=== PATIENT | male | born 1955 | race Caucasian/White ===

== ENCOUNTER 2025-07-06 15:22 | Emergency (ER) | payer MEDICARE, SELFPAY ==
--- NOTE | ~2025-07-06 | XR_ITS ---
EXAMINATION: XR FOOT, RIGHT CLINICAL INFORMATION: bony outgrowth of MCP COMPARISON: None available. TECHNIQUE: AP, lateral, and oblique views of the right foot. FINDINGS: There is severe degenerative changes of the first MTP joint with flattening of the distal metatarsal heads surface and irregular osteophytes with degenerative cystic change in the metatarsal head. There is mild degenerative changes in the IP joint of the great toe with marginal sites and mild narrowing. Small calcaneal spurs are evident. Otherwise, unremarkable exam. XR/XR foot RT min 3V IMPRESSION: Severe osteoarthritis the first MTP joint could be posttraumatic or post infectious. Electronically signed by: Alex Thompson MD 07/06/2025 04:29 PM EDT RP
[2025-07-06 15:28] VITALS: BP 126/81; PULSE 99; RESP 16; TEMP 36.7; O2SAT 99; BMI 21.8
--- NOTE | 2025-07-06 15:29 | ED.GENADULT ---
HPI - General Adult General Chief complaint: Extremity Problem Stated complaint: edema rt foot/lump over the big toe Time Seen by Provider: 07/06/25 17:00 Source: patient Mode of arrival: ambulatory Limitations: no limitations History of Present Illness ED Provider: Dr. Escamilla HPI narrative: 69-year-old male presented hospital today for signs of right foot swelling and bony outgrowth of the right MCP. Patient stated that this is abnormal. This swelling of the right foot has been going on for a month now. No traumatic injury. Related Data Previous Rx's ?Medication ?Instructions ?Recorded acetaminophen 500 mg tablet 1,000 mg (2 x 500 mg) PO Q8H 10 07/06/25 days #60 tabs ibuprofen 400 mg tablet 400 mg PO Q8H PRN pain #30 tabs 07/06/25 methylprednisolone 4 mg tablets in 4 mg PO DAILY #21 ea 07/06/25 a dose pack (Medrol (Deion)) Allergies Allergy/AdvReac Type Severity Reaction Status Date / Time Penicillins (PENICILLINS) Allergy Severe ANAPHYLAXIS Verified 07/06/25 15:30 penicillin V Allergy Unknown swelling Verified 07/06/25 15:30 Review of Systems Review of Systems: Pertinent review of systems as mentioned in HPI. All other system otherwise negative. FORMERLY [facility] Past Medical History [facility] Narrative: None Social History Social History Advance Directives: No Advance Directives Information Provided: No Physical Exam ED Exam Exam: General: Pleasant, no distress, interacting appropriately Head: Normacephalic, atraumatic Extremities: There is some swelling over the right MCP bony outgrowth appearing. No sign of erythema or cellulitis Neurological: Awake and alert, no facial droop noted Skin: Warm and dry Psychiatric: Appropriate mood and thoughts Vital Signs: Vital Signs - 24 hr 07/06/25 15:28 07/06/25 17:15 Temperature 98.1 F 98.1 F Pulse Rate 99 99 Respiratory Rate 16 16 Blood Pressure 126/81 126/81 Pulse Oximetry 99 99 Oxygen Delivery Method Room Air Room Air BMI result Body Mass Index 21.8 Course Course Course Narrative: Rapid medical screening exam was performed. Patient stable at time of evaluation. 69-year-old male history of hypertension , hyperlipidemia presented hospital today for right foot edema for 1 month Flores Escamilla DO 07/06/25 1530 Medications Administered Discontinued Medications Generic Name Dose Route Start Last Admin Trade Name Freq PRN Reason Stop Dose Admin Acetaminophen 975 mg 07/06/25 17:06 07/06/25 17:12 Acetaminophen 325 Mg Tablet PO 07/06/25 17:07 975 mg ONCE ONE Administration Ibuprofen 400 mg 07/06/25 17:06 07/06/25 17:12 Ibuprofen 400 Mg Tablet PO 07/06/25 17:07 400 mg ONCE ONE Administration Prednisone 40 mg 07/06/25 17:06 07/06/25 17:12 Prednisone 20 Mg Tablet PO 07/06/25 17:07 40 mg ONCE ONE Administration Medical Decision Making Medical Decision Making [facility] Narrative: 69-year-old male presented hospital today for evaluation of swollen of the right MCP Appears to be a bony outgrowth of the right MCP. We will obtain an x-ray. X-ray shows signs of severe osteoarthritis. We will plan to discharge patient with follow up with podiatry clinic. Prednisone ibuprofen Tylenol will be prescribed to the patient. I have low suspicion for any signs of infection. Patient will be discharged. Differential Diagnosis Differential Diagnoses: The differential diagnosis associated with the presentation includes Gout, osteoarthritis, bony outgrowth, cancer Independent Interpretation I performed an independent interpretation of an: Plain X-Ray Radiology Impression Discussion of test interpretation with radiology: I have reviewed the radiologist's reading. Discharge Plan Discharge Clinical Impression: Osteoarthritis Qualifiers: Osteoarthritis location: foot Osteoarthritis type: unspecified Laterality: left Qualified Code(s): M19.072 - Primary osteoarthritis, left ankle and foot Patient Disposition: Home, Self-Care Instructions: Osteoarthritis (ED) Prescriptions: New methylprednisolone [Medrol (Deion)] 4 mg tablets,dose pack 4 mg PO DAILY Qty: 21 0RF acetaminophen 500 mg tablet 1,000 mg PO Q8H 10 Days Qty: 60 0RF ibuprofen 400 mg tablet 400 mg PO Q8H PRN (Reason: pain) Qty: 30 0RF Referrals: [facility] Podiatry [Provider Group, Podiatry] Interventions: ED Discharge Assessment Last Done: 07/06/25 17:15 Discharge Date/Time: 07/06/25 17:15 Print Language: Yi
[2025-07-06 17:15] VITALS: BP 126/81; PULSE 99; RESP 16; TEMP 36.7; O2SAT 99
--- OUTSIDE RECORDS SUMMARY | 2025-07-06 20:14 | XMS_ITS ---
Author Name RUSTP Organization Unknown Care Team Organization Name Specialty Phone Email Start Date End Da te [facility] Primary [facility] 07/16/2022 4
--- OUTSIDE RECORDS SUMMARY | 2025-07-06 20:15 | XMS_ITS | Clinical Summary ---
Author Organization [facility] [address] [place] [address] [place] [address] SUSHMA Boateng [phone] Phone Care Team Providers Care Senior Publications Specialist Name Role Phone Agapito Reynaga MD Primary Care Provider [phone] Allergies Active Allergy Reactions Criticality Noted Date Comments Penicillins Swelling 10/10/2007 Medications carvediloL (COREG) 25 mg tablet Take 1 Tablet by mouth every 12 hours. 01/29/2024 Active FA/mv,Ca,iron,m in/lycopene/lut (MULTIVITAL ORAL) Take by mouth. Active folic acid (FOLVITE) 1 mg tablet Take 1 tablet (1,000 mcg total) by mouth 1 (one) time each day. 30 tablet 10/29/2024 Active spironolactone (ALDACTONE) 25 mg tablet TAKE 1 TABLET BY MOUTH EVERYDAY AT BEDTIME 90 tablet 1 04/06/2025 Active atorvastatin (LIPITOR) 20 mg tablet TAKE 1 TABLET BY MOUTH EVERY DAY 90 tablet 1 04/06/2025 Active lisinopriL (PRINIVIL,ZESTR IL) 5 mg tablet TAKE 1 TABLET BY MOUTH EVERYDAY AT BEDTIME 90 tablet 1 04/06/2025 Active Active Problems Problem Noted Date Diagnosed Date CKD (chronic kidney disease) stage 3, GFR 30-59 ml/min ([facility] V24, [facility] V28) 07/01/2023 Current smoker 01/08/2023 Dilated aortic root ([facility] V24) 03/10/2019 Alcohol abuse 12/17/2016 C. difficile colitis 12/17/2016 Overview (08/16/2024): February 2016 Hepatic abscess 12/17/2016 Overview (08/16/2024): February 2012 Hypertension 12/17/2016 Microhematuria 12/17/2016 Overview (08/16/2024): Dr. Garcia; 2011 Syncope 12/17/2016 Overview (08/16/2024): Dr. 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 Encounters Date Type Department Care Team Description 06/24/2025 Telephone Adult Medicine [address] [phone] Agapito Reynaga MD from Last 3 Months Immunizations Immunization Administration Dates Next Due Influenza trivalent, 0.5mL ( Fluad) 65yo and older 06/10/2024,10/22/2023,05/16/2022,09/05 Influenza trivalent, 0.5mL, preservative free (Fluarix; FluLaval; Fluzone) ages 6mo and older (Afluria) 3 years and older 07/07/2014 Influenza, Unspecified 05/24/2016 Pneumococcal conjugate 13 va lent (Prevnar 13, PCV13) 2mo and older 09/05/2021 Pneumococcal polysaccharide 23 valent (Pneumovax 23) 2yo and older 02/05/2017,08/20/2015 Pneumococcal, Unspecified 05/24/2016 Td Tetanus diptheria (Tdvax) 7yo and older 05/16/2022 Tdap Tetanus diptheria acell ular pertussis (Boostrix; Adacel) 7yo and older 02/12/2010 Zoster Live 08/20/2015 Surgical History Surgery Date Site/Laterality Comments LUMBAR LAMINECTOMY 1995 PROCEDURE: HISTORICAL LUMB LAMINECTOMY Social History Tobacco Use Types Packs/Day Years Used Date Smoking Tobacco: Former Cigarettes Q uit: 11/07/2023 Smokeless Tobacco: Never Alcohol Use Standard Drinks/Week Comments Not Asked 0 (1 standard drink = 0.6 oz pur e alcohol) Sex and Gender Information Value Date Recorded Sex Assigned at Not on file Legal Sex Male 5:35 PM EST Gender Identity Not on file Sexual Orientation Not on file Obstetrics History Last Filed Vital Signs Vital Sign Reading Time Taken Comments Blood Pressure 93/56 03/09/2024 10:11 AM EDT Pulse 87 03/09/2024 10:11 AM EDT Temperature - - Respiratory Rate - - Oxygen Saturation - - Inhaled Oxygen Concentration - - Weight 77.1 kg (170 lb) 03/09/2024 10:11 AM EDT Height 185.4 cm (6' 1 ) 03/09/2024 10:11 AM EDT Body Mass Index 22.43 03/09/2024 10:11 AM EDT Plan of Treatment Upcoming Encounters Date Type Department Care Team (Late st Contact Info) Description 12/19/2025 2:00 PM EDT Office Visit Adult Medicine [facility] [address] [place] [phone] Agapito Reynaga MD [address] [place] [phone] Health Maintenance Due Date Last Done Comments Hepatitis A Vaccines (1 of 2 - Risk 2-dose series) 1974 Zoster Vaccines (1 of 2) 10/15/2015 08/20/2015 Falls Risk Assessment 08/17/2022 Medicare Annual Wellness Visit 08/17/2022 Social Influencers of Health Screening 08/17/2022 Hypertension/CHF/CAD Annual BMP Blood Test 05/14/2023 05/14/2022 Lung Cancer Screening (Low Dose CT) 07/29/2023 07/29/2022 COVID-19 Vaccine (2 - Moderna risk series) 07/08/2024 06/10/2024 Depression Screening 09/08/2024 Influenza Vaccine (#1) 2025 , 10/22/2023, 05/16/2022, Additional history exists Pneumococcal Vaccine: 50+ Years (3 of 3 - PCV20 or PCV21) 09/05/2026 09/05/2021, 02/05/2017, 05/24/2016, Additional history exists Cholesterol Screening (Lipid Panel) 05/14/2027 05/14/2022 Colorectal Cancer Screening: Colonoscopy 12/31/2027 12/30/2017 RSV Immunization Adult Patients (1 - 1-dose 75+ series) 2030 DTaP,Tdap,and Td Vaccines (3 - Td or Tdap) 05/16/2032 05/16/2022, 02/12/2010 Hepatitis C Screening Completed 07/29/2016 Abdominal Aortic Aneurysm (AAA) Screen Completed 05/24/2022, 05/24/2022 HIB Vaccines Aged Out No longer eligi ble based on patient's age to complete this topic HPV Vaccines Aged Out No longer eligi ble based on patient's age to complete this topic Hepatitis B Vaccines Aged Out No long er eligible based on patient's age to complete this topic IPV Vaccines Aged Out No longer eligi ble based on patient's age to complete this topic MMR Vaccines Aged Out No longer eligi ble based on patient's age to complete this topic Meningococcal ACWY Vaccine Aged Out N o longer eligible based on patient's age to complete this topic Meningococcal B Vaccine Aged Out No l onger eligible based on patient's age to complete this topic RSV Immunization Patients Under 20 months Aged Out No longer eligible based on patient's age to complete this topic Varicella Vaccines Aged Out No longer eligible based on patient's age to complete this topic Procedures Procedure Name Priority Date/Time Associated Diagnosis Comments CT LUNG SCREENING LOW DOSE Routine 07/29/2022 6:52 PM EST Personal history of nicotine dependence US ABDOMINAL AORTA REAL TIME SCREEN STUDY AAA Routine 05/24/2022 9:00 AM EDT Tobacco use Encounter for screening for cardiovascular disorders ANNUAL BMP BLOOD TEST Routine 05/14/2022 LIPID PANEL Routine 05/14/2022 COLONOSCOPY Routine 12/30/2017 HEPATITIS C SCREENING Routine 07/29/2016 from Last 3 Months or Most Recently Relevant to Health Maintenance Results * CT LUNG SCREENING LOW DOSE (07/29/2022 6:52 PM EST) Anatomical Region Laterality Modality Computed Tomogra phy 07/29/2022 2:01 PM EST Narrative 07/29/2022 6:52 PM EST [facility] Diagnostic Imaging Department [address] [place] [id number] Patient: CLINTDOMINGO D.O.B./Age/Sex: 1955 - 67 - M Unit#: [id number] Location/Status: SPDICATLS/REG CLI Mnemonic/Ordering Site: [facility] Ordering Physician: FRANCOISE LEWIS MD CT Lung Screening Low Dose - 07/29/221404 INDICATION: 24.5 pack-year smoking history, currently smoking FINDINGS: Low-dose CT scan of the chest obtained as a lung cancer screening study. No prior studies are available for comparison. Scanner: Tekoraer 128 slice VCT Dose reduction technique: ASIR (Adaptive statistical iterative reconstruction) and/or AEC (automated exposure control) Dose: total exam DLP 190 mGY per cm Lung: Emphysematous changes with peripheral reticulonodular interstitial attenuation along the upper lobes anteriorly as well as along the lung bases. Septal thickening and groundglass components noted towards the inferior middle lobe and lingula as well as the lung bases. Mild associated peripheral honeycombing. Nodular scarring noted inferior laterally within the right upper lobe above the minor fissure with noncalcified nodule measuring 7 mm (series 6 on image 48). Lymph nodes: Multiple small mediastinal and hilar nodes without lymphadenopathy. Mediastinum: Trachea and esophagus are within normal limits. Heart normal in size and shape with moderate to severe coronary calcification. Mild aneurysmal dilatation of the ascending aorta measuring 4 cm in width. Bony structures: Demonstrate osteopenia and degenerative changes with old mild T12 compression fracture. IMPRESSION: Nodular scarring inferior lateral right upper lobe 7 mm noncalcified nodule. Interstitial lung disease. Moderate to severe coronary calcification. Lung RADS 3S, recommend low-dose diagnostic chest CT in 6 months. The S designation is for coronary artery calcifications as well as interstitial lung disease. Clinical correlation recommended. G0297, G9637, G9557, G9551 Dictating Physician: LOGAN GARNER MD Electronically Signed by: LOGAN GARNER MD Dic Date/Time: 07/29/221844 Sign date/Time: 07/29/221851 Procedure Note Logan Garner MD - 10/10/2023 [facility] Diagnostic Imaging Department [address] [place] [address] Patient: DOMINGO JARAMILLO Crystal Bonilla/Age/Sex: 1955 - 67 - M Unit#: [id number] Location/Status: [facility] Mnemonic/Ordering Site: [facility] Ordering Physician: FRANCOISE LEWIS MD CT Lung Screening Low Dose - 07/29/22 - 1405 INDICATION: 24.5 pack-year smoking history, currently smoking FINDINGS: Low-dose CT scan of the chest obtained as a lung cancerscreening study. No prior studies are available for comparison. Scanner: Tekoraer 128 slice VCT Dose reduction technique: ASIR (Adaptive statistical iterativereconstruction) and/or AEC (automated exposure control) Dose: total exam DLP 190 mGY per cm Lung: Emphysematous changes with peripheral reticulonodular interstitial attenuation along the upper lobes anteriorly as well as along the lungbases. Septal thickening and groundglass components noted towards the inferiormiddle lobe and lingula as well as the lung bases. Mild associated peripheral honeycombing. Nodular scarring noted inferior laterally within the right upper lobeabove the minor fissure with noncalcified nodule measuring 7 mm (series 6 on image48). Lymph nodes: Multiple small mediastinal and hilar nodes without lymphadenopathy. Mediastinum: Trachea and esophagus are within normal limits. Heart normalin size and shape with moderate to severe coronary calcification. Mildaneurysmal dilatation of the ascending aorta measuring 4 cm in width. Bony structures: Demonstrate osteopenia and degenerative changes with oldmild T12 compression fracture. IMPRESSION: Nodular scarring inferior lateral right upper lobe 7 mm noncalcifiednodule. Interstitial lung disease. Moderate to severe coronary calcification. Lung RADS 3S, recommend low-dose diagnostic chest CT in 6 months. The S designation is for coronary artery calcifications as well as interstitiallung disease. Clinical correlation recommended. G0297, G9637, G9557, G9551 Dictating Physician: LOGAN GARNER MD Electronically Signed by: LOGAN GARNER MD Dic Date/Time: 07/29/22 1845 Sign date/Time: 07/29/22 1852 Francoise Lewis MD IMG CT PROCEDURES Final Result * US ABDOMINAL AORTA REAL TIME SCREEN STUDY AAA (05/24/2022 9:00 AM EDT) Anatomical Region Laterality Modality Ultrasound 05/16/2022 8:59 AM EDT Narrative 05/24/2022 10:09 AM EDT History: Screening for abdominal aortic aneurysm. Ultrasound of the abdominal aorta: There is evidence of atherosclerosis distally. The abdominal aorta is otherwise normal in course, caliber and configuration. Proximal aortic AP diameter is 2.5 cm maximum. Mid aortic diameter is 2.0 cm, and distal aortic diameter is 1.9 cm. The common iliac arteries are normal in caliber as well. IMPRESSION: Some atherosclerosis distally. Negative screening examination for abdominal aortic aneurysm. Procedure Note Burt Alegria MD - 08/27/2022 History: Screening for abdominal aortic aneurysm. Ultrasound of the abdominal aorta: There is evidence of atherosclerosisdistally. The abdominal aorta is otherwise normal in course, caliber and configuration.Proximal aortic AP diameter is 2.5 cm maximum. Mid aortic diameter is 2.0 cm, and distalaortic diameter is 1.9 cm. The common iliac arteries are normal in caliber as well. IMPRESSION: Some atherosclerosis distally. Negative screening examination forabdominal aortic aneurysm. Result [facility] Debbie SHCILLING IMG US PROCEDURES Final Resul t * Annual BMP Blood Test (05/14/2022) [facility] Annual BMP Blood Test Abstracted Result [facility]INTENA[facility]CE Final Result * (ABNORMAL) Lipid panel (05/14/2022) [facility] LDL/HDL Ratio 3 0 - 4 Triglycerides 123 0 - 150 mg/dL Cholesterol 120 0 - 200 mg/dL HDL 39(A) >=40 mg/dL LDL Cholesterol 57 0 - 100 mg/dL Blood Venous blood specimen / Unknown Result [facility] Provider LAB BLOOD ORDERABLES Blanca l Result * Colonoscopy (12/30/2017) [facility] Colonoscopy Abstracted, no interpretation Anatomical Region Laterality Modality Other Result [facility] Brando [facility] Final Result * Hepatitis C Screening (07/29/2016) [facility] Hepatitis C Screening Abstracted Result [facility] Brando [facility] Final Result from Last 3 Months or Most Recently Relevant to Health Maintenance Insurance MEDICARE [facility] Care Teams Senior Publications Specialist Relationship Specialty Start Date End Date Agapito Reynaga MD PCP - General Internal Medicine 07/31/20
== END 2025-07-06 17:15 | disposition home or self-care (01) ==
PROVIDERS: Emergency Provider Student in an Organized Health Care Education/Training Program; PCP Internal Medicine
DX: M19.072 Primary osteoarthritis, left ankle and foot (principal); M79.89 Other specified soft tissue disorders
CPT/HCPCS: 73630; 99283

== ENCOUNTER → 2025-07-06 15:32 | Outpatient (BNV) | payer MEDICARE, SELFPAY | PROVIDERS: Emergency Provider Student in an Organized Health Care Education/Training Program; PCP Internal Medicine; Visit Provider Radiology Diagnostic Radiology | DX: M19.071 Primary osteoarthritis, right ankle and foot (principal) | CPT/HCPCS: 73630 ==

== ENCOUNTER 2025-07-14 13:35 | Outpatient (AMB) | payer MEDICARE, SELFPAY ==
--- NOTE | 2025-07-14 14:16 | A.OFFVIS_ITS ---
Vital Signs 07/14/25 14:17 Height 6 ft 1 in Weight 165 lb BMI 21.8 Intake Visit Reasons: Primary osteoarthritis, left ankle and foot Intake Note: Dionicio is a 70 year old male who presents today as a new patient for an evaluation of his right ankle and foot osteoarthritis. Pain is located on the dorsum aspect of his foot. Patient was seen at [facility] on 07/06/25 where X-rays where taken and he was prescribed medrol dosepak, ibuprofen, and acetaminophen. 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 He has concerns in regards to a bony growth on right hallux MTP joint Allergies Penicillins (PENICILLINS) Allergy (Severe, Verified 07/14/25 14:17) ANAPHYLAXIS penicillin V Allergy (Unknown, Verified 07/14/25 14:17) swelling HPI HPI Primary osteoarthritis, left ankle and foot: Details: 70-year-old male with past medical history of hyperlipidemia, hypertension, and tobacco use (1/2 PPD) presents for right big toe joint pain. The patient states he has noticed a bump forming on the top of his big toe joint has worsened over the past several months. He also complains of intermittent pain, worst after activity. Review of Systems Const All systems reviewed & are unremarkable except as noted in HPI and below Physical Exam Vital Signs: BMI result Body Mass Index 21.8 Extrem Other: *Bilateral Lower Extremity Focused Exam Vascular: DP/PT 2/4, CFT less than 3 seconds all digits, temperature gradient warm to cool. No pedal edema. Mild varicosities bilateral feet. Derm: Hyperkeratotic lesion with dry scab over the right 1st Metatarsal- phalangeal joint. Dry skin bilateral feet. Neuro: Protective sensation grossly intact to bilateral lower extremities MSK: 5 degrees range of motion to the right 1st Metatarsal-phalangeal joint. Large palpable protuberance over the dorsal aspect of the 1st Metatarsal- phalangeal joint with pain on palpation. Results Reviewed Results Reviewed: Podiatry X-ray Read: 07/06/2025 X-ray right foot 3 views (AP, MO, Lateral) reviewed which shows severe 1st Metatarsal-phalangeal joint joint destruction with minimal joint space, severe flattening of the 1st metatarsal head and the proximal phalanx base. First intermetatarsal angle is within normal limits. TSP within normal limits. Large dorsal exostosis of the metatarsal head. I personally reviewed the imaging and my findings are listed above. Assessment & Plan Assessment & Plan (1) Hallux rigidus, right foot: Code(s): M20.21 - Hallux rigidus, right foot Category: Medical Plan: * Reviewed right foot x-rays with the patient. * Discussed treatment options including shoe wear modifications, insert modifications, cortisone injections to the 1st Metatarsal-phalangeal joint during OA flares, and surgical treatment. Surgical treatment would consist of 1st Metatarsal-phalangeal joint arthrodesis. * The patient noted he is interested in surgical treatment at this time due to the dorsal spurring that irritates his foot. * He was recommended smoking cessation and to be tested for PAD to minimize surgical complications which include wound dehiscence, delayed union, malunion, nonunion. (2) Peripheral artery disease: Code(s): I73.9 - Peripheral vascular disease, unspecified Category: Medical Plan: * Rx NOLA/PVR (3) Smoker: Code(s): F17.200 - Nicotine dependence, unspecified, uncomplicated Category: Medical Plan: * 1/2 PPD Orders: Orders US NOLA complete Today I73.9 - Peripheral vascular disease, unspecified Medications: Discontinued methylprednisolone (Medrol (Deion)) Discontinued Reason: Patient no longer taking 4 mg PO DAILY 21 ea 0RF Coding Level of Care Code New Pt Level 4 (23941) Diagnoses Hallux rigidus, right foot M20.21 Peripheral artery disease I73.9 Smoker F17.200 Time Spent (min) 45
[2025-07-14 14:17] VITALS: BMI 21.8
== END 2025-07-14 14:33 | disposition home or self-care (01) ==
LOC: HO.HPODS 13:36
PROVIDERS: PCP Internal Medicine; Visit Provider Student in an Organized Health Care Education/Training Program
DX: M20.21 Hallux rigidus, right foot (principal); I73.9 Peripheral vascular disease, unspecified; F17.200 Nicotine dependence, unspecified, uncomplicated
CPT/HCPCS: 99204

== ENCOUNTER → 2025-07-14 13:35 | Outpatient (BNVA) | payer MEDICARE, SELFPAY | PROVIDERS: PCP Internal Medicine; Visit Provider Student in an Organized Health Care Education/Training Program | DX: M20.21 Hallux rigidus, right foot (principal); I73.9 Peripheral vascular disease, unspecified; F17.200 Nicotine dependence, unspecified, uncomplicated | CPT/HCPCS: 99202 ==